=== PATIENT | female | born 1940 | race Caucasian/White ===

== ENCOUNTER 2017-07-26 10:08 | Emergency (ER) | payer MEDICARE ==
[~2017-07-26 10:08] MED LIST: DUONEB IN; HEPARIN LOC1 UNIT/ML IV; LEVOTHYROXIN25 MCG PO; MAXIPIME IV; NORMAL SALINE F0.9 % IV; PERCOCET PO; PREDNISONE10 MG PO; PROTONIX20 M1 PO; SINGULAIR10 MG PO; [UNRECOGNIZED DRUG - OTHER] IN; [UNRECOGNIZED DRUG - OTHER] IV
[2017-07-26] MEDS ORDERED: PREDNISONE50 MG PO (10:24)
[2017-07-26] MEDS ORDERED: DUONEB IN ×2 (10:24→11:03)
[2017-07-26] MEDS ORDERED: XYZAL ALLERGY 245 MG PO (10:52)
[2017-07-26] MEDS ORDERED: OMEPRAZOLE10 MG PO (10:54)
[2017-07-26] MEDS ORDERED: PROTONIX40 M2 PO (10:56)
[2017-07-26] MEDS ORDERED: CENTRUM PO (10:59)
[2017-07-26] MEDS ORDERED: PRESERVISION PO (11:02)
[2017-07-26] MEDS ORDERED: CYMBALTA30 MG PO (11:03)
== END 2017-07-26 11:07 | disposition home or self-care (01) ==
LOC: ED 10:08
DX: J44.9 Chronic obstructive pulmonary disease, unspecified (principal); Z85.118 Personal history of other malignant neoplasm of bronchus and lung; Z91.14 Patient's other noncompliance with medication regimen; Z76.0 Encounter for issue of repeat prescription